=== PATIENT | male | born 1950 | race Caucasian/White ===

== ENCOUNTER → 2025-04-06 09:41 | Outpatient (REF) | payer OTHER, SELFPAY | LOC: MRI 3T 09:41 | PROVIDERS: ATTENDING PHYSICIAN Specialist; FAMILY PHYSICIAN Internal Medicine | DX: R97.20 Elevated prostate specific antigen [PSA] (principal) | CPT/HCPCS: 72197; A9575 ==

== ENCOUNTER 2025-06-23 06:18 | Day surgery (SDC) | payer OTHER, SELFPAY | END 2025-06-23 08:45 | disposition home or self-care (01) | LOC: GI 06:18 | PROVIDERS: ATTENDING PHYSICIAN Specialist; FAMILY PHYSICIAN Internal Medicine | DX: Z12.11 Encounter for screening for malignant neoplasm of colon (principal); K57.30 Diverticulosis of large intestine without perforation or abscess without bleeding; K64.8 Other hemorrhoids; D12.0 Benign neoplasm of cecum; K64.4 Residual hemorrhoidal skin tags | CPT/HCPCS: 45385; 88305 ==

== ENCOUNTER → 2025-06-29 11:06 | Outpatient (REF) | payer OTHER, SELFPAY | LOC: PET 11:06 | PROVIDERS: ATTENDING PHYSICIAN Radiology Radiation Oncology | DX: C61 Malignant neoplasm of prostate (principal) | CPT/HCPCS: 78815 ==